=== PATIENT | female | born 1985 | race Two or more races ===

== ENCOUNTER → 2021-10-02 | Emergency (ER) | payer SELFPAY ==
[~2021-10-02] VITALS: Ht 175.3 cm; Wt 96.6 kg
[2021-10-02 17:17] VITALS: BP 127/86
== END | disposition left against medical advice (07) ==
LOC: ER 16:48
DX: R10.9 Unspecified abdominal pain (principal); R11.2 Nausea with vomiting, unspecified; R19.7 Diarrhea, unspecified; Z20.822 Contact with and (suspected) exposure to COVID-19; Z53.21 Procedure and treatment not carried out due to patient leaving prior to being seen by health care provider
CPT/HCPCS: 81001; 87426